=== PATIENT | male | born 1980 | race Caucasian/White ===

== ENCOUNTER 2024-12-28 13:03 | Outpatient (CLI) | payer SELFPAY ==
--- NOTE | 2024-12-28 13:24 | US_ITS ---
WS: [id number] US pelvic limited [id number] HISTORY: R/O Right Inguinal Hernia COMPARISON: None available. Heterogeneous mass in the region of the RIGHT inguinal canal. There is no peristalsis. There are cystic and solid components in a large vessel. Does not have a typical appearance for incarcerated hernia or lymph node. US/US pelvic limited [id number] IMPRESSION: Soft tissue mass in the RIGHT inguinal region. Not typical for a lymph node or hernia. Suggest follow-up pelvic CT to evaluate this soft tissue mass.
== END 2024-12-28 13:04 | disposition home or self-care (01) ==
LOC: RAD 13:05
PROVIDERS: PCP Nurse Practitioner Family; Visit Provider Nurse Practitioner Family
DX: R10.31 Right lower quadrant pain (principal); R19.09 Other intra-abdominal and pelvic swelling, mass and lump; R93.89 Abnormal findings on diagnostic imaging of other specified body structures
CPT/HCPCS: 76857

== ENCOUNTER 2025-02-20 09:27 | Outpatient (CLI) | payer SELFPAY ==
--- NOTE | 2025-02-20 09:38 | CT_ITS ---
WS: [id number] CT PELVIS NONCONTRAST HISTORY: SOFT TISSUE MASS RIGHT INGUINAL REGION TECHNIQUE: Contiguous imaging is performed of the pelvis without contrast. Coronal and sagittal reformats are reviewed. All CT scans at [facility] use at least one of these dose optimization techniques: automated exposure control; mA and/or kV adjustment per patient size (includes targeted exams where dose is matched to clinical indication); or iterative reconstruction. DLP: 199.48 mGy.cm COMPARISON: Ultrasound 12/28/2024 No RIGHT inguinal mass is identified. There is no evidence for hernia. There is a few benign-appearing lymph nodes in each inguinal region. Normal appearance of the soft tissues and muscles of the pelvis. Moderate fecal retention in the RIGHT colon. No GI tract obstruction noted through the pelvis. There is no free fluid. No adenopathy. Vascular calcifications in the iliac arteries. No bone abnormality. No destructive bone lesions. CT/CT pelvis wo con [id number] IMPRESSION: 1. No inguinal hernia or mass identified. 2. Normal appearance of the soft tissues along the RIGHT inguinal canal.
== END 2025-02-20 09:28 | disposition home or self-care (01) ==
PROVIDERS: PCP Nurse Practitioner Family; Visit Provider Nurse Practitioner Family
DX: M79.9 Soft tissue disorder, unspecified (principal); R59.0 Localized enlarged lymph nodes; K59.00 Constipation, unspecified; I70.8 Atherosclerosis of other arteries
CPT/HCPCS: 72192

== ENCOUNTER 2025-03-15 19:28 | Emergency (ER) | payer SELFPAY ==
[2025-03-15 19:31] VITALS: BP 134/86; PULSE 85; RESP 15; TEMP 36.9; O2SAT 100; BMI 21.7
--- NOTE | 2025-03-15 20:05 | W.ED.MALEGU ---
HPI - Male Genitourinary General: Chief complaint: Urogenital-Male Stated complaint: hernia causing pain large today Time Seen by Provider: 03/15/25 19:53 Source: patient Mode of arrival: ambulatory History of Present Illness: Patient is a nontoxic 45-year-old male with no significant past medical history who states that he has had hernia in the right inguinal region intermittently for several weeks to a couple of months. He states he has been waiting to hear back from a surgeon for about the last 1 to 2 weeks to get an appointment for follow-up. He was at work today and had lifted something and felt pain in his right groin and noticed a bulge in that area. He states it hurt quite severely however has since reduced and is no longer present. He denies any fevers or chills. No vomiting. His pain and discomfort have resolved now. Location: right inguinal region Associated symptoms: Deny nausea or vomiting Related Data Previous Rx's ?Medication ?Instructions ?Recorded mupirocin 2 % topical ointment 1 applic topical TID #22 grams 07/21/23 sulfamethoxazole 800 1 tab PO BID 10 days #20 tabs 07/21/23 mg-trimethoprim 160 mg tablet (Bactrim DS) Allergies Allergy/AdvReac Type Severity Reaction Status Date / Time Penicillins Allergy ADR-Dizzine Verified 07/21/23 18:58 ss Review of Systems Const: Denies: fever(s) or chills Eyes: Denies: change in vision ENMT: Denies: throat pain Card: Denies: chest pain Resp: Denies: dyspnea or productive cough GI: Reports: abdominal pain; Denies: nausea or vomiting : Denies: flank pain Physical Exam Const: COMMON NORMALS: no acute distress, average body habitus, alert and well nourished GENERAL APPEARANCE: cooperative ORIENTATION/CONSCIOUSNESS: Yes awake OTHER: Somewhat poorly groomed 45-year-old male in no acute distress HENMT: COMMON NORMALS: normocephalic and atraumatic HEAD & SCALP: normocephalic and atraumatic Eye: COMMON NORMALS: conjunctivae normal CONJUNCTIVA: Yes conjunctivae normal Neck/C-Spine: GENERAL: Yes normal visual inspection Resp: COMMON NORMALS: normal respiratory effort, No retractions and No use of accessory muscles Cardio: COMMON NORMALS: regular rhythm and Peripheral pulses 2+ throughout RHYTHM: regular rhythm PERIPHERAL PULSES: Peripheral pulses 2+ throughout GI: COMMON NORMALS: Soft to palpation and non-tender PALPATION: Yes Soft to palpation : PENIS: normal penis and circumcised OTHER: Abdomen is soft and nondistended. No palpable abdominal or inguinal hernia. Normal exam with normal palpable testicles bilaterally. Extremity: COMMON NORMALS: full ROM and no pedal edema Neuro: COMMON NORMALS: no focal motor deficits SENSORIUM/ORIENTATION: Yes alert Skin: COMMON NORMALS: no rashes or lesions noted GENERAL SKIN EXAM: no rashes or lesions noted Course Vital Signs: Vital signs: Vital Signs Temperature 98.4 F 03/15/25 19:31 Pulse Rate 85 03/15/25 19:31 Respiratory Rate 15 03/15/25 19:31 Blood Pressure 134/86 03/15/25 19:31 Pulse Oximetry 100 03/15/25 19:31 Oxygen Delivery Me thod Room Air 03/15/25 19:31 MDM - Male Medical Decision Making Patient is a nontoxic 45-year-old male who presents to the ER for evaluation of right abdominal/inguinal hernia. He points to his right inguinal region and groin as location of the bulge earlier tonight with pain after lifting something. He acknowledges that mass has since subsided and his pain is resolved. We discussed hernia treatment and care at home at length and reasons to return to the ER and he expresses understanding. He will continue to seek follow-up with outpatient general surgery. No radiology studies performed this visit Discharge Plan Discharge Patient Disposition: Home Clinical Impression: Inguinal hernia Condition: Stable Prescriptions: No Action sulfamethoxazole-trimethoprim [Bactrim DS] 800-160 mg tablet 1 tab PO BID 10 Days Qty: 20 0RF mupirocin 2 % ointment 1 applic topical TID Qty: 22 0RF Discharge Orders: Discharge ED (Routine); Ordered 03/15/25 Ordered By: Jethro Barker Referrals: Staci Lopez FNP [Primary Care Provider] - Discharge Diet: Usual diet Discharge Activity: Limit activity as instructed Patient Instructions: Inguinal Hernia (ED), Opioid Safety, Pain Management Activity Restrictions/Additional Instructions: Limit any heavy lifting as discussed. Take stool softeners as discussed to limit any constipation. Follow-up with general surgery for further outpatient evaluation. Return to the ER for any concerns. Print Language: Scottish Coding Level of Care Code ED Mandarin Speaking Nanny for Mary Lou Rivas
[2025-03-15 20:28] VITALS: BP 138/74; PULSE 79; O2SAT 95
== END 2025-03-15 20:29 | disposition home or self-care (01) ==
PROVIDERS: Emergency Provider Student in an Organized Health Care Education/Training Program; PCP Nurse Practitioner Family
DX: K40.90 Unilateral inguinal hernia, without obstruction or gangrene, not specified as recurrent (principal)
CPT/HCPCS: 99281

== ENCOUNTER 2025-04-26 08:50 | Day surgery (SDC) | payer SELFPAY ==
[2025-04-26] VITALS (12 sets, daily range): BP systolic 127–154; BP diastolic 76–98; PULSE 56–76; RESP 16; TEMP 36.2–36.7; O2SAT 94–100
[2025-04-26] MEDS: sodium chloride 0.9% 1,000 ML 30 ML IV (09:39)
--- NOTE | 2025-04-26 10:07 | W.PM.OPSFHP ---
Same Day Surgery H&P Indication for Procedure/HPI DATE OF PROCEDURE: April 26, 2025 CHIEF COMPLAINT/INDICATIONFOR SURGICAL PROCEDURE: right inguinal hernia PREOP DIAGNOSIS: right inguinal hernia PLANNED PROCEDURE: Operation Date: 04/26/25 10:35 Proposed Procedures p Laparoscopic POSSIBLE OPEN Inguinal Hernia Repair w/Mesh(Right) - Ruddy Phelan MD Medications/Allergies* Home Medications ?Medication ?Instructions ?Recorded ?Confirmed ?Type No Known Home Medications 03/20/25 04/25/25 History Allergies/Adverse Reactions Allergy/AdvReac Type Severity Reaction Status Date / Time Penicillins Allergy ADR-Dizzine Verified 03/20/25 13:35 ss Current Medications: Generic Name Dose Route Start Last Admin Trade Name Freq PRN Reason Stop Dose Admin Sodium Chloride 1,000 mls @ 30 mls/hr 04/26/25 09:00 04/26/25 09:39 Sodium Chloride 0.9% IV 04/27/25 08:59 30 mls/hr .Q24H SKYE Administration Pertinent History/Comorbid Conditions* Social History Smoking and tobacco/nicotine status: current every day tobacco/nicotine user (1 1/2 PPD) Pertinent Exam Findings alert, oriented x 3, clear to auscultation bilaterally and regular rate & rhythm Recommendations Surgery/Procedure today Coding Level of Care Code Acute Code for Chg Fwd
--- NOTE | 2025-04-26 10:10 | ANES.PREANE2 ---
Pre-Anesthetic Assessment Height/Weight: Height 6 ft 1 in Weight 152 lb Temp Pulse Resp BP Pulse Ox O2 Del Method 97.4 F L 71 16 127/87 99 Room Air 04/26/25 09:07 04/26/25 09:07 04/26/25 09:07 04/26/25 09:07 04/26/25 09:07 04/26/25 09:14 Preop Diagnosis: right inguinal hernia Operation Date: 04/26/25 10:35 Proposed Procedures p Laparoscopic POSSIBLE OPEN Inguinal Hernia Repair w/Mesh(Right) - Ruddy Phelan MD Was Beta Roime taken within 24 hours: N/A Was Clonidine taken within 24 hours: N/A Last intake: Intake Last Liquid Date 04/25/25 Last Liquid Time 23:00 Last Solid Date 04/25/25 Last Solid Time 19:00 Social Tobacco and No alcohol Exam alert, oriented x 3 and regular rate & rhythm Decreased breath sounds bilaterally Airway Submandibular: within normal limits Cervical ROM: within normal limits Mallampati: Class III Dentition: full Comments: Comments: Denies any loose teeth Anesthetic Plan ASA status: 2 Anesthesia: General Other: No prior issues with anesthesia NPO since yesterday evening Current smoker Denies any cardiac issues METs greater than 4 Plan for general anesthesia Medications/Allergies Home Medications ?Medication ?Instructions ?Recorded ?Confirmed ?Last Taken ?Type No Known Home Medications 03/20/25 04/25/25 Unknown History Allergies Allergy/AdvReac Type Severity Reaction Status Date / Time Penicillins Allergy ADR-Dizzine Verified 03/20/25 13:35 ss Current Medications Generic Name Dose Route Start Last Admin Trade Name Babak PRN Reason Stop Dose Admin Sodium Chloride 1,000 mls @ 30 mls/hr 04/26/25 09:00 04/26/25 09:39 Sodium Chloride 0.9% IV 04/27/25 08:59 30 mls/hr .Q24H SKYE Administration PFSH Anesthesia Social History Smoking and tobacco/nicotine status: current every day tobacco/nicotine user (1 11/23 PPD)
[2025-04-26] MEDS: VANCOMYCIN ADD-Vantage 1,000 MG in 0.9% NaCl ADD-Vantage 250 ML 250 MG IV (10:21)
[2025-04-26] MEDS: lidocaine-epi 1% 20 mL INJ 9 ML INJECTION (11:36)
[2025-04-26] MEDS: BUPivacaine 0.25% INJ 10 mL 9 ML INJECTION (11:36)
--- NOTE | 2025-04-26 11:56 | P.OP_ITS ---
Operative Report Date of procedure: April 26, 2025 Pre-op diagnosis: Right inguinal hernia Post-op diagnosis: Indirect right inguinal hernia. Post-op findings: There was a indirect right inguinal hernia, there was also a lipoma of the cord Procedure done: Laparoscopic repair of right inguinal hernia Implants: Medium right size Bard 3D max mesh Specimens removed/disposition: None Surgeon: Ruddy Phelan MD Infectious Diseases Physician: NOEMÍ OR Staff Estimated blood loss: 5 Complications: none Brief History: 45-year-old male with a right inguinal hernia who presents to my office for evaluation for repair. After discussion of all risk benefits with side to proceed with a laparoscopic possible open repair Procedure: Patient was brought into the OR, he was placed in a supine position. General anesthesia was given. The abdomen was prepped and draped in the usual sterile fashion. A timeout was conducted. I then made a 1.5 cm infraumbilical incision, the incision was deepened until the anterior rectus sheath was identified. I opened the right anterior rectus sheath with electrocautery, I then used hemostat to retract the muscle in a lateral direction exposing the retrorectus space. I then advanced a balloon through the retrorectus space to the level of the pubic bone with care of not injuring any surrounding structures. I then under direct visualization inflated the balloon and saw the preperitoneal space developed. The balloon was removed and a 12 mm trocar was placed. I then pulled additional 5 mm trocars in the suprapubic and infra umbilical position. With careful blunt dissection I was able to develop the preperitoneal space, the pubic bone was identified laterally I dissected until the femoral vein was identified. I then placed my attention to the lateral aspect of the space and developed the space of Borgos, careful blunt dissection. I finally got my attention to the area of the internal ring, I carefully dissected the sac from the cord structures, the sac was completely reduced into the preperitoneal space and additional 4 cm from the internal ring were dissected to prevent recurrence. I then noted a small lipoma of the cord which was reduced into the preperitoneal space. Hemostasis was verified. I then inserted a right side medium 3D max mesh, the mesh was placed into the space covering the internal and external rings with adequate overlap. No need for mesh fixation was noted as the mesh was laying completely flat in the space with no wiggle room. The space was desufflated under direct visualization the mesh was noted to lay flat. The trocars were removed. The anterior rectus sheath was closed with #0 Vicryl. I then infiltrated local anesthesia in the wounds and the wounds were closed in layers using #3-0 Vicryl for the subcutaneous tissue #4 Monocryl for the skin. Finally Dermabond was applied. At the end of the procedure all counts were correct the patient tolerated well the procedure was transferred to PACU in stable condition.
--- NOTE | 2025-04-26 12:35 | ANE.PACU2 ---
Inpatient post-anesthesia follow up: Airway intact: Yes Vital signs: Temperature 97.9 F Pulse Rate 57 Respiratory Rate 16 Blood Pressure 151/81 Pulse Oximetry 98 Oxygen Delivery Me thod Room Air Oxygen Flow Rate 2 Fraction of Inspir ed Oxygen Hydration adequate: Yes Nausea and vomiting: No Pain level: 2 Mental status: Baseline
== END 2025-04-26 14:45 | disposition home or self-care (01) ==
PROVIDERS: PCP Nurse Practitioner Family; Visit Provider Surgery
PROC: (CPT 49650; principal; 2025-04-26 10:25)
DX: K40.90 Unilateral inguinal hernia, without obstruction or gangrene, not specified as recurrent (principal); D17.6 Benign lipomatous neoplasm of spermatic cord; F17.210 Nicotine dependence, cigarettes, uncomplicated; Z88.0 Allergy status to penicillin
CPT/HCPCS: 49650; 51702; A4216; C1781; J1100; J1171; J2250; J2405; J2704; J3010; J3370; J3490; J7030; J7050; J9999